=== PATIENT | female | born 1995 | race Caucasian/White ===

== ENCOUNTER 2021-04-08 12:37 | Inpatient (IN) | payer OTHER, BC ==
[2021-04-08 13:38] VITALS: BMI 33.7
[2021-04-08] MEDS ORDERED: Ondansetron PF 4 MG/2 ML Vial IVP PRN ×2 (15:59→18:01)
[2021-04-08] MEDS ORDERED: Lidocaine 1% (PF) 30 ML VIAL SC PRN ×2 (15:59→16:17)
[2021-04-08] MEDS ORDERED: Ibuprofen 800 MG TAB PO PRN ×2 (15:59→16:17)
[2021-04-08] MEDS ORDERED: Promethazine HCl 25 MG/ML VIAL IM PRN ×2 (15:59→18:01)
[2021-04-08] MEDS ORDERED: Methylergonovine 0.2 MG/ML VIAL IM PRN ×2 (15:59→16:18)
[2021-04-08] MEDS ORDERED: hydrALAZINE 20 MG/ML VIAL SLOW IVP PRN (15:59)
[2021-04-08] MEDS ORDERED: HYDROcodone/Acetaminophen 5/325 mg Tablet PO PRN ×2 (15:59)
[2021-04-08] MEDS ORDERED: Lactated Ringer's 1,000 ML IV PRN (15:59)
[2021-04-08] MEDS ORDERED: NS w/ Oxytocin 30 units 500 ML IV SCH ×3 (16:00→16:15)
[2021-04-08] MEDS ORDERED: NS w/ Oxytocin 30 units 500 ML IVPB SCH (16:15)
[2021-04-08] MEDS ORDERED: Misoprostol 200 MCG TAB RC PRN (16:17)
[2021-04-08] MEDS ORDERED: Diphenoxylate HCl/Atropine Tablet PO PRN (16:18)
[2021-04-08] MEDS ORDERED: Carboprost 250 MCG/ML AMP IM PRN (16:18)
[2021-04-08 16:25] LABS: Hemoglobin 11.4 g/dL (12.0-15.5); Mean Corpuscular Hemoglobin 28.1 pg (27.0-33.0); Mean Corpuscular Volume 85.2 fl (81.6-98.3); Mean Platelet Volume 10.1 fl (7.4-10.4); Platelet Count 258 10x3/uL (150-450); RBC Distribution Width 13.1 % (11.5-14.5); Red Blood Cell (RBC) Count 4.05 10x6/uL (3.90-5.03); White Blood Cell (WBC) Count 16.4 10x3/uL (3.5-10.5)
[2021-04-08] MEDS ORDERED: Acetaminophen 500 MG TAB PO PRN (16:30)
[2021-04-08] MEDS ORDERED: Butorphanol Tartrate 1 MG/ML VIAL SLOW IVP PRN (16:30)
[2021-04-08 16:44] LABS: Syphilis Antibody Nonreactive (Nonreactive); Syphilis Antibody Index 0.04 S/CO (<1.00 Non-Reactive)
[2021-04-08 16:45] LABS: Hep B Surf Ag Non-Reactive S/CO (NonReactive)
[2021-04-08] MEDS ORDERED: Fentanyl 2 mcg/Bup 0.1% Cadd 100 ML ONE (17:14)
[2021-04-08 17:22] LABS: HBSAg Index 0.14 S/CO (0-0.99)
[2021-04-08] MEDS ORDERED: Lactated Ringer's 500 ML IV PRN (18:01)
[2021-04-08] MEDS ORDERED: Acetaminophen 325 MG TAB PO PRN (18:01)
[2021-04-08] MEDS ORDERED: diphenhydrAMINE 50 MG/ML VIAL IVP PRN (18:01)
[2021-04-08] MEDS ORDERED: ePHEDrine Sulfate 50 MG/10 ML VIAL SLOW IVP PRN (18:01)
[2021-04-08] MEDS ORDERED: Hydrocerin (Eucerin) Cream 120 gm Jar TOP PRN (18:01)
[2021-04-08] MEDS ORDERED: Naloxone HCl 0.4 mg/ml Vial IVP PRN ×2 (18:01)
[2021-04-08] MEDS ORDERED: Communication Order-Pharmacy FS PRN (18:15)
[2021-04-08] MEDS ORDERED: Fentanyl 2 mcg/Bupivacaine 0.1% Cassette 100 ML EPIDURAL SCH (18:15)
[2021-04-08 18:32] LABS: SARS-CoV-2 NAA Rapid Test Not Detected (NotDetected)
[2021-04-09] MEDS ORDERED: Boostrix 0.5 ML (Tdap) VIAL IM ONE (00:33)
[2021-04-09] MEDS ORDERED: Milk Of Magnesia 30 ML UDCUP PO PRN (00:33)
[2021-04-09] MEDS ORDERED: HYDROcodone/Acetaminophen 5/325 mg Tablet PO PRN (00:33)
[2021-04-09] MEDS ORDERED: Benzocaine-Menthol 82.5 ML CAN TOP PRN (00:33)
[2021-04-09] MEDS ORDERED: hydrALAZINE 20 MG/ML VIAL SLOW IVP PRN (00:33)
[2021-04-09] MEDS ORDERED: Methylergonovine 0.2 MG/ML VIAL IM PRN (00:33)
[2021-04-09] MEDS ORDERED: Bisacodyl 10 MG SUPP PR PRN (00:33)
[2021-04-09] MEDS: Ibuprofen 800 MG TAB PO SCH ×3 (07:00→21:51)
[2021-04-09] MEDS ORDERED: Bupivacaine 0.25% 10 ML VIAL ONE (08:00)
[2021-04-09] MEDS ORDERED: Bupivacaine PF 0.5% 30 ML VIAL ONE (08:00)
[2021-04-09] MEDS: Prenatal Vitamin 1 TAB PO SCH ×2 (09:38→09:41)
[2021-04-09] MEDS: Docusate Calcium (SURFAK) 240 MG CAP PO SCH ×2 (09:38→21:51)
[2021-04-09] MEDS: Ferrous Sulfate 325 MG TAB PO SCH ×2 (09:41→17:47)
[2021-04-09] MEDS ORDERED: Lanolin Ointment 7 GM TUBE TOP PRN (22:39)
[2021-04-10] MEDS: Ibuprofen 800 MG TAB PO SCH ×2 (05:13→13:18)
[2021-04-10 07:58] VITALS: BP 110/57; TEMP 97.9
[2021-04-10] MEDS: Ferrous Sulfate 325 MG TAB PO SCH (08:27)
[2021-04-10] MEDS: Docusate Calcium (SURFAK) 240 MG CAP PO SCH (08:28)
[2021-04-10] MEDS: Prenatal Vitamin 1 TAB PO SCH ×2 (08:28→13:04)
== END 2021-04-10 13:50 | disposition home or self-care (01) | DRG 807 ==
LOC: CSHLD/OP 12:37 → CSHLD 15:30 → CSHPP 04-09 01:10
PROVIDERS: ADMIT Student in an Organized Health Care Education/Training Program; ATTEND Student in an Organized Health Care Education/Training Program
PROC: 10E0XZZ Delivery of Products of Conception, External Approach (ICD-10-PCS; principal; 2021-04-08)
PROC: 0KQM0ZZ Repair Perineum Muscle, Open Approach (ICD-10-PCS; 2021-04-08)
PROC: 10907ZC Drainage of Amniotic Fluid, Therapeutic from Products of Conception, Via Natural or Artificial Opening (ICD-10-PCS; 2021-04-08)
PROC: 3E0R3GC Introduction of Other Therapeutic Substance into Spinal Canal, Percutaneous Approach (ICD-10-PCS; 2021-04-09)
DX: O99.344 Other mental disorders complicating childbirth (principal); Z37.0 Single live birth; Z3A.39 39 weeks gestation of pregnancy; O70.1 Second degree perineal laceration during delivery; O69.1XX0 Labor and delivery complicated by cord around neck, with compression, not applicable or unspecified; F41.9 Anxiety disorder, unspecified; F32.9 Major depressive disorder, single episode, unspecified; G97.1 Other reaction to spinal and lumbar puncture; Z20.822 Contact with and (suspected) exposure to COVID-19; O89.4 Spinal and epidural anesthesia-induced headache during the puerperium
CPT/HCPCS: 51702; 62272; 85027; 86780; 86850; 86900; 86901; 87340; 99285; J0595; J2001; J2590; S0020; U0002

== ENCOUNTER 2022-01-22 14:43 | Emergency (ER) | payer BC ==
[~2022-01-22 14:43] MED LIST: Iopamidol 300 61% 100 ML VIAL FS ONE
[2022-01-22 15:49] LABS: Bilirubin Neg (Negative); Blood, Urine Negative (Negative); Clarity Clear (Clear); Glucose, Urine (Dipstick) Normal (Negative); Ketone, Urine Negative (Negative); Leukocyte 25 (Negative); Nitrite Negative (Negative); Protein, Urine (Dipstick) Negative (Neg-Trace); Urobilinogen Normal mg/dL (Less than 2); pH, Urine 6.5 (5.0-9.0)
[2022-01-22 15:51] LABS: #Eosinphils 0.2 10x3/uL (0.0-0.5); #Monocytes 0.6 10x3/uL (0.0-1.1); #Neutrophils 5.6 10x3/uL (1.5-8.4); %Basophils 0.4 % (0.0-2.0); %Eosinophils 2.5 % (0.0-6.0); %Lymphocytes 29.9 % (18.0-47.0); %Monocytes 6.1 % (0.0-10.0); Hemoglobin 13.6 g/dL (12.0-15.5); Mean Corpuscular HGB CONC 33.8 g/dL (32.0-36.0); Mean Corpuscular Hemoglobin 28.3 pg (27.0-33.0); Mean Corpuscular Volume 83.8 fl (81.6-98.3); Mean Platelet Volume 9.9 fl (7.4-10.4); Platelet Count 303 10x3/uL (150-450); RBC Distribution Width 12.7 % (11.5-14.5); White Blood Cell (WBC) Count 9.2 10x3/uL (3.5-10.5)
[2022-01-22 15:53] LABS: Pregnancy Test - Urine (BHCG) Negative (Negative)
[2022-01-22 15:54] LABS: Pregu Control Background? CLEAR/WHITE (CLR/WHITE); Pregu Control Bar Appear? YES (CONTROL BAR)
[2022-01-22 16:06] LABS: Bacteria/HPF Rare-Few HPF (None Seen); RBC/HPF 0-3 HPF (0-3); Squamous Epithelial 0-3 HPF (0-3); WBC/HPF 0-3 HPF (0-3)
[2022-01-22 16:10] LABS: ALT (SGPT) 9 U/L (8-55); AST (SGOT) 13 U/L (5-34); Albumin 4.5 g/dL (3.5-5.0); Alkaline Phosphatase 87 U/L (40-110); Anion Gap 13 mmol/L (10-20); BUN (Urea Nitrogen) 9 mg/dL (7.0-18.7); Bilirubin, Total 0.4 mg/dL (0.2-1.2); Calc. Creatinine Clearance 0 mL/min (70-130); Calcium 9.5 mg/dL (7.8-10.44); Carbon Dioxide 26 mmol/L (22-29); Chloride 105 mmol/L (98-107); Globulin 2.6 g/dL (2.4-3.5); Glucose 83 mg/dL (70-105); Lipase 20 U/L (8-78); Potassium 3.8 mmol/L (3.5-5.1); Protein, Total 7.1 g/dL (6.0-8.3); Sodium 140 mmol/L (136-145)
[2022-01-22] MEDS ORDERED: Ketorolac Tromethamine 30 MG/ML VIAL ONE (17:58)
== END 2022-01-22 18:09 | disposition home or self-care (01) ==
LOC: CSHERS 14:43
DX: R10.9 Unspecified abdominal pain (principal); R10.813 Right lower quadrant abdominal tenderness; R10.811 Right upper quadrant abdominal tenderness
CPT/HCPCS: 74177; 80053; 81003; 81015; 81025; 83690; 85025; 96374; J1885